=== PATIENT | male | born 1950 ===

== ENCOUNTER 2018-03-27 20:46 | Emergency (ER) | payer SELFPAY ==
[2018-03-27 21:13] VITALS: BP 131/86
[2018-03-27] MEDS ORDERED: Lidocaine 2% PF * 5 ML VIAL INJ ONE (21:30)
--- NOTE | 2018-03-27 21:30 | UC ---
Hand/Wrist HPI - HPI Summary HPI Summary: 67 yo male present after falling and injuring his left little finger and right thumb denies head or neck injury declines analgesic - History Of Current Complaint Chief Complaint: UCUpperExtremity Stated Complaint: R THUMB INJURY Time Seen by Provider: 03/27/18 21:00 Hx Obtained From: Patient Onset/Duration: Sudden Onset Severity Initially: Moderate Severity Currently: Mild Pain Intensity: 2 Pain Scale Used: 0-10 Numeric Character Of Pain: Aching Aggravating Factor(s): Movement Alleviating Factor(s): Nothing Related History: Dominant Hand Right Hands: 1 - tender but good ROM 2 - deformity laterally 3 - supeficial appearing skin flap lac 3mm long - Allergies/Home Medications Allergies/Adverse Reactions: Allergies Allergy/AdvReac Type Severity Reaction Status Date / Time No Known Allergies Allergy Verified 03/27/18 21:04 Home Medications: Home Medications NK [No Home Medications Reported] 03/27/18 [History Confirmed 03/27/18] PMH/Surg Hx/FS Hx/Imm Hx - Surgical History Surgical History: None - Family History Known Family History: Positive: Hypertension - Social History Alcohol Use: Occasionally Substance Use Type: None Smoking Status (MU): Never Smoked Tobacco Review of Systems Constitutional: Negative Skin: Negative Eyes: Negative ENT: Negative Respiratory: Negative Cardiovascular: Negative Gastrointestinal: Negative Genitourinary: Negative Motor: Negative Neurovascular: Negative Musculoskeletal: Arthralgia Neurological: Negative Psychological: Negative Is Patient Immunocompromised?: No All Other Systems Reviewed And Are Negative: Yes Physical Exam Triage Information Reviewed: Yes Appearance: Well-Appearing, No Pain Distress, Well-Nourished Vital Signs: Initial Vital Signs Temp 98.5 F 03/27/18 20:59 Pulse 77 03/27/18 20:59 Resp 18 03/27/18 20:59 BP 131/86 03/27/18 20:59 Pulse Ox 99 03/27/18 20:59 Eyes: Positive: Conjunctiva Clear ENT: Positive: Hearing grossly normal. Negative: Nasal congestion, Nasal drainage, Trismus, Muffled voice, Hoarse voice Neck: Positive: Supple Respiratory: Positive: No respiratory distress Musculoskeletal: Positive: ROM Limited @ - left little finger with obvious deformity Procedures - Procedure Summary Procedure Summary: digital block left little finger sterile prep time out digital block with 5 cc 2 % lidocaine - Joint Reduction Right Joint Reduction Site: other - left little finger PIP joint Specify Other Joint Reduced: left little finger PIP joint Conscious Sedation: No Pre-Procedure NV Exam: Yes Post Joint Reduction Film: joint reduced Diagnostics - Radiology No standard instances Xray Interpretation: Positive (See Comments) - right thumb-djd left little finger -dislocation PIP Radiology Interpretation Completed By: ED Physician Hand/Wrist Course/Dx - Course Course Of Treatment: patient desires to have post reduction films done in [place] tomorrow. states he will follow in an ER in [place]. he has copies of films - Differential Dx/Diagnosis Provider Diagnoses: right thumb contusion. left little finger PIP dislocation- reduced Discharge - Sign-Out/Discharge Documenting (check all that apply): Patient Departure All imaging exams completed and their final reports reviewed: No - Discharge Plan Condition: Stable Disposition: HOME Patient Education Materials: Finger Dislocation (ED) Additional Instructions: splint elevate tylenol or advil give gave you a shot of rocephin (1000mg) due to the broken skin overlying the dislocated joint I suggest you get rechecked when you get home You can have post reduction XRays then and a determination can be made re the need for further antibiotics take copies of films with you - Billing Disposition and Condition Condition: STABLE Disposition: Home
[2018-03-27] MEDS ORDERED: cefTRIAXone VIAL(*) 1,000 MG VIAL IM ONE (21:49)
[2018-03-27] MEDS ORDERED: Lidocaine 1%* 5 ML VIAL ONE (21:55)
[2018-03-27] MEDS ORDERED: Lidocaine 1%* 5 ML VIAL INJ ONE (21:56)
--- NOTE | 2018-03-28 07:48 | RAD ---
Indication: Left fifth finger injury. 3 views of left fifth finger demonstrates posterior and lateral dislocation of the middle phalanx. IMPRESSION: Posterior inferior dislocation of the middle phalanx of the fifth digit. R0
--- NOTE | 2018-03-28 07:54 | RAD ---
Indication: Right thumb injury. 3 views of the right thumb demonstrates degenerative changes of the first metacarpal phalangeal joint. No fracture is identified. IMPRESSION: Degenerative changes of the first metacarpal phalangeal joint.
== END 2018-03-27 22:15 | disposition home or self-care (01) ==
LOC: UCEAST 20:46
DX: S60.011A Contusion of right thumb without damage to nail, initial encounter (principal); S63.271A Dislocation of unspecified interphalangeal joint of left index finger, initial encounter; W19.XXXA Unspecified fall, initial encounter; Y93.9 Activity, unspecified; Y92.9 Unspecified place or not applicable
CPT/HCPCS: 26775; 73140; 96372; 99201; G0463; J0696